=== PATIENT | female | born 1980 | race Caucasian/White ===

== ENCOUNTER → 2020-04-24 09:56 | Outpatient (CLI) | payer BC, SELFPAY ==
--- NOTE | ~2020-04-24 | XR_ITS ---
EXAMINATION: XR foot RT min 3V EXAM DATE: 04/24/2020 10:29 INDICATION: diffuse rt foot pain s/p injury today . Initial encounter. TECHNIQUE: Right foot dorsoplantar, lateral and oblique projections obtained and reviewed. There is no prior study for comparison. FINDINGS: On the lateral projection there is a tiny sliver-like density along the dorsal aspect of t he right tarsometatarsal, Lisfranc joint, appears to be a tiny acute avulsion injury off of a metatar bart base. There is mild soft tissue swelling just proximal to this. Probably either the 1st or 2nd me tatarsal base. This finding has been indicated, marked on the examination for review, clinical correl ation. Mild bunion, hallux valgus. IMPRESSION: Suspect tiny acute nondisplaced dorsal metatarsal base avulsion fracture, probably 1st o r 2nd metatarsal. Reviewed, dictated and finalized at location A. RESTAURANT IMPRESSION: Suspect tiny acute nondisplaced dorsal metatarsal base avulsion fr acture, probably 1st or 2nd metatarsal.
== END ==
PROVIDERS: PCP Emergency Medicine; Visit Provider Emergency Medicine
DX: M79.671 Pain in right foot (principal)
CPT/HCPCS: 73630

== ENCOUNTER 2021-03-15 20:42 | Emergency (ER) | payer BC, SELFPAY ==
--- NOTE | ~2021-03-15 | XR_ITS ---
EXAMINATION: XR chest 1V portable DATE: 03/15/2021 21:09 INDICATION: Asthma presenting with 2 weeks of shortness of breath and congestion TECHNIQUE: AP view of the chest was obtained COMPARISON: None FINDINGS: The lungs are clear with no focal airspace opacities, pulmonary edema, pleural effusion or pneumothor ax. The cardiomediastinal silhouette is normal. Mild thoracic dextrocurvature. IMPRESSION: 1. No acute cardiopulmonary disease. Reviewed, dictated and finalized at location A.
[2021-03-15 20:47] VITALS: BP 120/79; PULSE 91; RESP 18; TEMP 36.6; O2SAT 100
[2021-03-15 22:30] VITALS: BP 133/79; PULSE 88; RESP 14; O2SAT 98
--- NOTE | 2021-03-15 22:45 | ED.GENADULT ---
HPI - General Adult General Chief complaint: Upper Respiratory Infection Stated complaint: SOB, breathing differently Time Seen by Provider: 03/15/21 22:24 History of Present Illness HPI narrative: Patient 41-year-old female presents the emergency department with chief complaint of cough. Patient states that she has history of asthma and has had to use her inhaler recently. The patient states she has little wheezing whenever she is the end of her expiratory phase and reports that she has had a cough runny nose little bit of a sore throat. 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 Nursing and ancillary documentation was reviewed. PMFSH Past Medical History Medical History Asthma Surgical History Surgical History History of oral surgery Comerio Teeth Extracted Family History Family History Father Embolism Mother Family history unknown Social History Social History Smoking status: Never smoker Exam Narrative: GENERAL: Well-appearing, well-nourished, and in no acute distress. HEAD: Normocephalic, atraumatic. EYES: PERRLA and EOMI. ENT: Nares clear, no rhinorrhea or epistaxis. Mucous membranes moist. NECK: Supple. CHEST: Clear to auscultation. No respiratory distress. HEART: Regular rate and rhythm. No murmur heard. Normal peripheral pulses. ABDOMEN: Soft, nontender, nondistended, normal active bowel sounds. EXTREMITIES: Normal range of motion. No edema. SKIN: Warm, dry, no rash. NEURO: No focal deficits. Alert and oriented x3. PSYCH: Normal mood and affect. Course Vital Signs Vital signs: Vital Signs Temperature 36.6 C 03/15/21 20:47 Pulse Rate 91 03/15/21 20:47 Respiratory Rate 18 03/15/21 20:47 Blood Pressure 120/79 03/15/21 20:47 Pulse Oximetry 100 03/15/21 20:47 Temperature 36.6 C 03/15/21 20:47 Pulse Rate 88 03/15/21 22:30 Respiratory Rate 14 03/15/21 22:30 Blood Pressure 133/79 03/15/21 22:30 Pulse Oximetry 98 03/15/21 22:30 Medical Decision Making Vital Signs Vital Signs: Vital Signs Temperature 36.6 C 03/15/21 20:47 Pulse Rate 91 03/15/21 20:47 Respiratory Rate 18 03/15/21 20:47 Blood Pressure 120/79 03/15/21 20:47 Pulse Oximetry 100 03/15/21 20:47 Temperature 36.6 C 03/15/21 20:47 Pulse Rate 88 03/15/21 22:30 Respiratory Rate 14 03/15/21 22:30 Blood Pressure 133/79 03/15/21 22:30 Pulse Oximetry 98 03/15/21 22:30 Lab Data Labs: UCG Bedside Result Negative Reference Range: Negative Discharge Plan Discharge Clinical Impression: Upper respiratory infection Patient Disposition: Home, Self-Care Condition: Stable Instructions: Antibiotic Form, Upper Respiratory Infection (ED) Prescriptions: New benzonatate 200 mg capsule 200 mg PO TID PRN (Reason: cough) Qty: 21 RF: 0 methylprednisolone [Medrol (Terry)] 4 mg tablets,dose pack See Rx Instructions .ROUTE .COMPLEX Qty: 21 RF: 0 Follow-up/Referrals: PHYSICIAN NOT ON STAFF,NONSTAFF [Primary Care Provider] - Time of Disposition: 23:52
[2021-03-15] MEDS: predniSONE 20 MG TABLET 60 MG PO (23:09)
[2021-03-15 23:50] VITALS: BP 130/80; PULSE 97; RESP 14; O2SAT 97
[2021-03-16 20:20] LABS: SARS-CoV-2 RNA PCR Negative
== END 2021-03-15 23:50 | disposition home or self-care (01) ==
PROVIDERS: Emergency Provider Emergency Medicine
DX: J06.9 Acute upper respiratory infection, unspecified (principal); J45.909 Unspecified asthma, uncomplicated; Z20.822 Contact with and (suspected) exposure to COVID-19
CPT/HCPCS: 71045; 81025; 87081; 87804; 87880; 99283; C9803; J7512; U0003; U0005

== ENCOUNTER 2022-06-25 15:01 | Outpatient (CLI) | payer BC, SELFPAY ==
[2022-06-25 15:14] LABS: Hematocrit 38.9 % (35.0-49.0); Hemoglobin 12.7 g/dL (12.0-15.0); Mean Corpuscular HGB Conc 32.6 g/dL (32.0-36.0); Mean Corpuscular Hemoglobin 29.1 pg (27.0-31.0); Mean Platelet Volume 10.6 fl (9.2-11.8); Platelet Count Result 232 K/mm3 (150-420); Red Blood Count 4.37 M/mm3 (4.20-5.40); Red Cell Distribution Width 12.5 % (11.6-14.4); White Blood Count 8.5 K/mm3 (4.8-10.8)
[2022-06-25 15:47] LABS: Alanine Aminotransferase 25 U/L (14-59); Albumin Level 4.4 g/dL (3.4-5.0); Alkaline Phosphatase 53 U/L (46-116); Anion Gap 10 mmol/L (8-16); Aspartate Amino Transferase 12 U/L (15-37); Bilirubin,Total 0.3 mg/dL (0.00-1.00); Blood Urea Nitrogen 18 mg/dL (7-18); Carbon Dioxide 28 mmol/L (21-32); Chloride 102 mmol/L (98-108); Estimated Glomerular Filt Rate > 60; Glucose 112 mg/dL (70-99); Lipase 26 U/L (16-77); Osmolality Calculated 292 mOsm/kg (285-295); Potassium 3.9 mmol/L (3.5-5.1); Sodium 140 mmol/L (136-145); Total Protein 7.2 g/dL (6.4-8.2)
[2022-06-25 15:54] LABS: CRP < 0.5 mg/dL (0.0-0.9)
== END 2022-06-25 15:02 | disposition home or self-care (01) ==
PROVIDERS: PCP Family Medicine; Visit Provider Family Medicine
DX: R10.9 Unspecified abdominal pain (principal)
CPT/HCPCS: 36415; 80053; 83690; 85027; 86140